=== PATIENT | female | born 1965 | race Two or more races ===

== ENCOUNTER 2022-10-25 10:49 | Emergency (ER) | payer MEDICAID ==
[~2022-10-25] VITALS: Ht 170.2 cm; Wt 68.2 kg
[~2022-10-25 10:49] MED LIST: ALBU8.5H17 IH; LISI-639 PO
[2022-10-25 12:18] VITALS: BP 149/89
== END 2022-10-25 14:51 | disposition left against medical advice (07) ==
LOC: ER 10:49
DX: J00 Acute nasopharyngitis [common cold] (principal); Z53.21 Procedure and treatment not carried out due to patient leaving prior to being seen by health care provider

== ENCOUNTER 2023-04-14 17:17 | Emergency (ER) | payer MEDICAID ==
[~2023-04-14] VITALS: Ht 170.2 cm; Wt 72.7 kg
[2023-04-14 17:45] VITALS: BP 156/96
[2023-04-14] MEDS ORDERED: LIDOcaine 1% W/epiNEPHrine 1:200,000 10ml vial IJ ONE (18:35)
[2023-04-14] MEDS ORDERED: TETanus/Pertussis (Acell)/Diphther VAC/PF (Tdap-Adult) 0.5ml syringe IMVAC ONE (18:35)
[2023-04-14] MEDS ORDERED: LIDOcaine 1% W/epiNEPHrine 1:100,000 20ml vial IJ ONE (19:20)
[2023-04-14] MEDS ORDERED: oxyCODONE/APAP 5-325mg tablet PO ONE (19:50)
[2023-04-14] MEDS ORDERED: sulfamethoxazole/trimethoprim DS (800/160mg) tablet PO ONE (19:50)
[2023-04-14] MEDS ORDERED: SULF1TAB45 PO (19:53)
== END 2023-04-14 20:28 | disposition home or self-care (01) ==
LOC: ER 17:18
DX: L02.214 Cutaneous abscess of groin (principal); I10 Essential (primary) hypertension; G89.29 Other chronic pain; G43.909 Migraine, unspecified, not intractable, without status migrainosus; Z79.899 Other long term (current) drug therapy
CPT/HCPCS: 10060; 90471; 90715; 99283; A6258; A6266; A6449

== ENCOUNTER 2023-10-09 20:53 | Emergency (ER) | payer MEDICAID ==
[~2023-10-09] VITALS: Ht 170.2 cm; Wt 86.2 kg
[2023-10-09 20:54] VITALS: BP 192/108; PULSE 85; RESP 16; TEMP 98.6; O2SAT 99
== END 2023-10-09 22:42 | disposition home or self-care (01) ==
LOC: ER 20:53
DX: M25.531 Pain in right wrist (principal); G43.909 Migraine, unspecified, not intractable, without status migrainosus; G89.29 Other chronic pain; M79.7 Fibromyalgia; I10 Essential (primary) hypertension; Z79.899 Other long term (current) drug therapy; W19.XXXA Unspecified fall, initial encounter; Y93.89 Activity, other specified; Y92.89 Other specified places as the place of occurrence of the external cause; Y99.8 Other external cause status
CPT/HCPCS: 73110; 99281; 99283

== ENCOUNTER 2023-12-14 11:51 | Emergency (ER) | payer MEDICAID ==
[~2023-12-14] VITALS: Ht 170.2 cm; Wt 85.5 kg
[2023-12-14 12:23] VITALS: BP 184/105; PULSE 96; RESP 18; TEMP 98.2; O2SAT 97
[2023-12-14 12:56] LABS: BASOPHILS % (AUTO) 0.3 % (0-1); EOSINOPHILS # (AUTO) 0.1 X10'3 (0-0.9); HEMATOCRIT 44.5 % (35.0-45.0); HEMOGLOBIN 14.7 g/dl (12.0-16.0); LYMPHOCYTES # (AUTO) 0.7 X10'3 (1.1-4.8); LYMPHOCYTES % (AUTO) 6.4 % (21-51); MEAN CORPUSCULAR HEMOGLOBIN 29.3 PG (27.0-31.0); MEAN CORPUSCULAR VOLUME 88.8 FL (78-98); MEAN PLATELET VOLUME 8.5 FL (7.4-10.4); MONOCYTES # (AUTO) 0.7 X10'3 (0-0.9); MONOCYTES % (AUTO) 6.5 % (2-12); NEUTROPHILS # (AUTO) 9.2 X10'3 (1.8-7.7); NEUTROPHILS % (AUTO) 85.8 % (42-75); PLATELET COUNT 210 X10'3 (140-440); RED BLOOD COUNT 5.01 X10'6 (4.20-5.60); RED CELL DISTRIBUTION WIDTH 14.3 % (11.5-14.5); WHITE BLOOD COUNT 10.7 X10'3 (4.5-11.0)
[2023-12-14 13:12] LABS: ALANINE AMINOTRANSFERASE 17 U/L (12-78); ALBUMIN 3.6 G/DL (3.4-5.0); ALBUMIN/GLOBULIN RATIO 0.9 (1.1-1.5); ALKALINE PHOSPHATASE 96 IU/L (46-116); ANION GAP 10 (8-16); ASPARTATE AMINO TRANSFERASE 18 U/L (10-37); BILIRUBIN,TOTAL 0.7 MG/DL (0.1-1.0); BLOOD UREA NITROGEN 22 MG/DL (7-18); BUN/CREATININE RATIO 32.4 (10.0-20.0); CALCIUM 8.8 MG/DL (8.5-10.1); CHLORIDE 106 MMOL/L (99-107); CREATININE 0.68 MG/DL (0.40-0.90); GLUCOSE 107 MG/DL (70-104); LIPASE 113 U/L (16-77); POTASSIUM 3.6 MMOL/L (3.5-5.1); SODIUM 140 MMOL/L (135-145); TOTAL CARBON DIOXIDE 24.1 MMOL/L (24-32); TOTAL PROTEIN 7.4 G/DL (6.4-8.2); eCRCL 88 ML/MIN; eGFR 89 ML/MIN
== END 2023-12-14 19:04 | disposition left against medical advice (07) ==
LOC: ER 11:51
DX: R10.9 Unspecified abdominal pain (principal); Z53.21 Procedure and treatment not carried out due to patient leaving prior to being seen by health care provider
CPT/HCPCS: 36415; 80053; 83690; 85025; 99281

== ENCOUNTER 2024-09-04 11:03 | Emergency (ER) | payer MEDICAID ==
[~2024-09-04] VITALS: Ht 170.2 cm; Wt 80.5 kg
[2024-09-04] MEDS ORDERED: AMOX-117 PO (12:11)
[2024-09-04 12:21] VITALS: BP 150/72; PULSE 76; RESP 15; TEMP 98.1; O2SAT 98
== END 2024-09-04 12:27 | disposition home or self-care (01) ==
LOC: ER 11:04
DX: L03.213 Periorbital cellulitis (principal); I10 Essential (primary) hypertension; M79.7 Fibromyalgia; Z88.0 Allergy status to penicillin; Z88.1 Allergy status to other antibiotic agents; Z88.8 Allergy status to other drugs, medicaments and biological substances
CPT/HCPCS: 99283